=== PATIENT | male | born 1940 | race Caucasian/White ===

== ENCOUNTER 2019-01-23 09:13 | Day surgery (SDC) | payer MEDICARE ==
[~2019-01-23] VITALS: Ht 170.2 cm; Wt 75.9 kg
[~2019-01-23 09:13] MED LIST: AMLO5 PO; ATOR20 PO; ATOR80 PO; Aspir 8181 MG PO; CEPH500 PO; CLOT10 SS; GLIP10 PO; GLIP10ER; GLIP10ER PO; Glucophage1000 MG PO; INSULANPEN SC; LISI20 PO; LISI5 PO; METF500 PO; METF500C PO; METO25ER PO; METO50 PO; METO50ER PO; NITR.4SL SL; NITR.6SL PO; Nitrostat0.4 MG SL; Prinivil10 MG PO; TICA90TA; TICA90TA PO; Toprol Xl50 MG PO; Zestril40 MG PO
--- NOTE | 2019-01-23 10:49 | NUR ---
01/23/19 1042 Billie Gilliam RN NOTIFIED DR DE LA VEGA AND DR MARY OF PT'S VITAL SIGNS. PT HAS A PULSE OF 44 AND BP OF 196/81. AFTER ASSESSING THE PATIENT DR MARY AND DR LUCERO OK'D THIS PATIENT FOR HIS PROCEDURE. PT DENIES PAIN, NAUSEA, HEADACHES, AND DIZZINESS. CALL LIGHT IN REACH. WARM BLANKETS OFFERRED. DR MARY WROTE A NOTE TO THIS PT'S PCP. NOTE FAXED TO PCP KAYLEY ORTIZ TODAY AT [phone].
--- NOTE | 2019-01-23 13:13 | NUR ---
01/23/[address] DIALATED WITH DAVID 38, 42, 44, 46, 48, 50. PT TOLERATED PROCEDURE WELL.
[2019-03-19] MEDS ORDERED: ZESTRIL40 MG PO (15:05)
== END 2019-01-23 11:53 | disposition home or self-care (01) ==
LOC: ORSCSDS 09:13
PROVIDERS: Internal Medicine Gastroenterology
PROC: 0DB48ZX Excision of Esophagogastric Junction, Via Natural or Artificial Opening Endoscopic, Diagnostic (ICD-10-PCS; principal; 2019-01-23 11:00)
PROC: 0D758ZZ Dilation of Esophagus, Via Natural or Artificial Opening Endoscopic (ICD-10-PCS; principal; 2019-01-23 11:00)
PROC: 0DB68ZX Excision of Stomach, Via Natural or Artificial Opening Endoscopic, Diagnostic (ICD-10-PCS; principal; 2019-01-23 11:00)
DX: R13.14 Dysphagia, pharyngoesophageal phase (principal); R23.4 Changes in skin texture; K22.2 Esophageal obstruction; K44.9 Diaphragmatic hernia without obstruction or gangrene; E11.9 Type 2 diabetes mellitus without complications; Z87.891 Personal history of nicotine dependence; Z79.84 Long term (current) use of oral hypoglycemic drugs; Z79.899 Other long term (current) drug therapy
CPT/HCPCS: 82947; 87081; 88305; 88312; 88342; J2704; J7120

== ENCOUNTER 2019-03-27 13:06 | Day surgery (SDC) | payer MEDICARE ==
[~2019-03-27] VITALS: Ht 170.2 cm; Wt 75.5 kg
[~2019-03-27 13:06] MED LIST changes: +ZESTRIL40 MG PO
== END 2019-03-27 17:15 | disposition home or self-care (01) ==
LOC: ORSCSDS 13:06
PROVIDERS: Internal Medicine Gastroenterology
PROC: 0DBM8ZX Excision of Descending Colon, Via Natural or Artificial Opening Endoscopic, Diagnostic (ICD-10-PCS; principal; 2019-03-27 14:30)
PROC: 0DBN8ZX Excision of Sigmoid Colon, Via Natural or Artificial Opening Endoscopic, Diagnostic (ICD-10-PCS; principal; 2019-03-27 14:30)
PROC: 0DBP8ZX Excision of Rectum, Via Natural or Artificial Opening Endoscopic, Diagnostic (ICD-10-PCS; principal; 2019-03-27 14:30)
PROC: 0DBL8ZX Excision of Transverse Colon, Via Natural or Artificial Opening Endoscopic, Diagnostic (ICD-10-PCS; principal; 2019-03-27 14:30)
PROC: 0DBK8ZX Excision of Ascending Colon, Via Natural or Artificial Opening Endoscopic, Diagnostic (ICD-10-PCS; principal; 2019-03-27 14:30)
PROC: 0DJ08ZZ Inspection of Upper Intestinal Tract, Via Natural or Artificial Opening Endoscopic (ICD-10-PCS; principal; 2019-03-27 14:30)
PROC: 0D757ZZ Dilation of Esophagus, Via Natural or Artificial Opening (ICD-10-PCS; principal; 2019-03-27 14:30)
DX: Z12.11 Encounter for screening for malignant neoplasm of colon (principal); Z86.010 Personal history of colon polyps; Z80.0 Family history of malignant neoplasm of digestive organs; D12.4 Benign neoplasm of descending colon; D12.2 Benign neoplasm of ascending colon; D12.3 Benign neoplasm of transverse colon; D12.5 Benign neoplasm of sigmoid colon; D12.8 Benign neoplasm of rectum; K57.30 Diverticulosis of large intestine without perforation or abscess without bleeding; K21.9 Gastro-esophageal reflux disease without esophagitis; Q39.3 Congenital stenosis and stricture of esophagus; K44.9 Diaphragmatic hernia without obstruction or gangrene; E11.9 Type 2 diabetes mellitus without complications; I10 Essential (primary) hypertension; I25.2 Old myocardial infarction; Z86.718 Personal history of other venous thrombosis and embolism; Z79.4 Long term (current) use of insulin; Z79.899 Other long term (current) drug therapy
CPT/HCPCS: 82947; 88305; J2704; J7120

== ENCOUNTER 2020-01-08 12:40 | Inpatient (IN) | payer MEDICARE ==
[~2020-01-08] VITALS: Ht 170.2 cm; Wt 71.9 kg
[~2020-01-08 12:40] MED LIST changes: +BASAGLAR K100 UNIT/1 SC
[2020-01-08] MEDS ORDERED: AMLODIPINE BESYL5 MG PO (12:48)
[2020-01-08] MEDS ORDERED: CARVEDILOL3.125 MG PO (12:49)
[2020-01-08 13:14] LABS: BASOPHILS ABSOLUTE AUTO 0.07 K/mm3 (0.00-0.23); BASOPHILS PERCENT AUTO 1 % (0-2); EOSINOPHILS ABSOLUTE AUTO 0.07 K/mm3 (0.00-0.68); EOSINOPHILS PERCENT AUTO 1 % (0-6); Hematocrit 45.8 % (37.0-53.0); Hemoglobin 15.2 g/dL (13.5-17.5); IMMATURE GRAN ABSOLUTE AUTO 0.04 K/mm3 (0.00-0.10); IMMATURE GRAN PERCENT AUTO 0 % (0-1); LYMPHOCYTES PERCENT AUTO 17 % (21-46); MONOCYTES ABSOLUTE AUTO 0.76 K/mm3 (0.16-1.47); MONOCYTES PERCENT AUTO 7 % (4-13); Mean Corpuscular HGB Conc 33.2 g/dL (31.5-36.5); Mean Corpuscular Volume 90 fL (80-100); Mean Platelet Volume 9.2 fL (9.1-12.4); NEUTROPHILS ABSOLUTE AUTO 8.83 K/mm3 (1.96-9.15); NEUTROPHILS PERCENT AUTO 75 % (41-73); Platelet Count 355 K/mm3 (150-400); RDW Standard Deviation 39.9 fL (35.1-46.3); Red Blood Cell Count 5.07 M/mm3 (4.30-5.90); White Blood Cell Count 11.77 K/mm3 (4.00-11.30)
[2020-01-08 13:42] LABS: Alanine Aminotransfer (ALT/SGP 42 U/L (12-78); Albumin, Blood 3.7 g/dL (3.4-5.0); Albumin/Globulin Ratio 0.8 (0.8-1.8); Alk Phos 83 U/L (50-136); Anion Gap 5 mmol/L (6-16); Aspartate Aminotrans (AST/SGOT 25 U/L (12-37); Bilirubin, Total 0.8 mg/dL (0.1-1.0); Blood Urea Nitrogen 20 mg/dL (8-24); Bun/Creatinine Ratio 20.9 (12.0-20.0); CO2, Blood 28 mmol/L (21-32); Calcium, Blood 9.7 mg/dL (8.5-10.1); Chloride, Blood 103 mmol/L (98-108); Creatinine, Blood 0.96 mg/dL (0.60-1.20); Globulin, Blood 4.5 g/dL (2.2-4.0); Glomerular Filtration Rate >60 (60-); Glucose, Blood 233 mg/dL (70-99); Potassium, Blood 4.5 mmol/L (3.5-5.5); Sodium, Blood 136 mmol/L (136-145); Total Protein, Blood 8.2 g/dL (6.4-8.2)
[2020-01-08] MEDS ORDERED: CHLO25B PO (15:19)
--- NOTE | 2020-01-09 01:07 | NUR ---
Peripheral IV located in Right anticubital, inserted 6/5, unintentionally charted as left AC. Site clean, dry and intact, flushing well.
--- NOTE | 2020-01-09 04:16 | NUR ---
MOBILE HEALTH VEHICLE OPERATOR SUMMARY Slept well overnight. No complaints of pain or discomfort. Pleasant and cooperative with Q4 hour neuro checks. No deficits noted with exception of complaints of red and blue light flashes in his eyes. Also, the patient was noted to have a visual field cut at the angles of 10:00 and 2:00. Papers have been filled out for this morning's MRI. will continue monitoring
[2020-01-09 04:53] LABS: BASOPHILS ABSOLUTE AUTO 0.06 K/mm3 (0.00-0.23); BASOPHILS PERCENT AUTO 1 % (0-2); EOSINOPHILS ABSOLUTE AUTO 0.21 K/mm3 (0.00-0.68); EOSINOPHILS PERCENT AUTO 2 % (0-6); Hematocrit 43.2 % (37.0-53.0); Hemoglobin 14.2 g/dL (13.5-17.5); IMMATURE GRAN ABSOLUTE AUTO 0.03 K/mm3 (0.00-0.10); IMMATURE GRAN PERCENT AUTO 0 % (0-1); LYMPHOCYTES ABSOLUTE AUTO 2.37 K/mm3 (0.84-5.20); LYMPHOCYTES PERCENT AUTO 27 % (21-46); MONOCYTES ABSOLUTE AUTO 0.75 K/mm3 (0.16-1.47); MONOCYTES PERCENT AUTO 8 % (4-13); Mean Corpuscular HGB 29.7 pg (26.0-34.0); Mean Corpuscular HGB Conc 32.9 g/dL (31.5-36.5); Mean Corpuscular Volume 90 fL (80-100); Mean Platelet Volume 9.2 fL (9.1-12.4); NEUTROPHILS ABSOLUTE AUTO 5.51 K/mm3 (1.96-9.15); NEUTROPHILS PERCENT AUTO 62 % (41-73); Platelet Count 295 K/mm3 (150-400); RDW Coefficient Variation 12.2 % (11.7-14.2); RDW Standard Deviation 40.5 fL (35.1-46.3); Red Blood Cell Count 4.78 M/mm3 (4.30-5.90); White Blood Cell Count 8.93 K/mm3 (4.00-11.30)
[2020-01-09 05:11] LABS: Albumin, Blood 3.1 g/dL (3.4-5.0); Anion Gap 4 mmol/L (6-16); Blood Urea Nitrogen 28 mg/dL (8-24); CO2, Blood 27 mmol/L (21-32); Calcium, Blood 8.9 mg/dL (8.5-10.1); Chloride, Blood 104 mmol/L (98-108); Glomerular Filtration Rate >60 (60-); Glucose, Blood 170 mg/dL (70-99); Phosphorus, Blood 3.5 mg/dL (2.5-4.9); Potassium, Blood 3.8 mmol/L (3.5-5.5); Sodium, Blood 135 mmol/L (136-145)
--- NOTE | 2020-01-09 18:37 | NUR ---
SHIFT SUMMARY PT REPORTED COLORED FLOATERS IN FRONT OF HIS EYES WELL BEING QUITE BLURRY. STATES IT HASN'T IMPROVED THROUGH DAY. NAPPING MOST OF DAY IN ROOM WHEN TESTING AND CARE NOT BEING COMPLETED. HAND FOREIGN AGENT EQUAL AND LEG STRENGTH EQUAL BUT DOES STRUGGLE WITH VISUAL ABILITY AT THIS TIME.
[2020-01-10 05:01] LABS: Anion Gap 6 mmol/L (6-16); Blood Urea Nitrogen 30 mg/dL (8-24); Bun/Creatinine Ratio 31.2 (12.0-20.0); CO2, Blood 27 mmol/L (21-32); Calcium, Blood 8.4 mg/dL (8.5-10.1); Chloride, Blood 104 mmol/L (98-108); Creatinine, Blood 0.96 mg/dL (0.60-1.20); Glomerular Filtration Rate >60 (60-); Glucose, Blood 113 mg/dL (70-99); Potassium, Blood 3.8 mmol/L (3.5-5.5); Sodium, Blood 137 mmol/L (136-145)
--- NOTE | 2020-01-10 06:28 | NUR ---
CAD LIBRARIAN SUMMARY Patient slept most of the night. Complained of mild headache early in shift, then fell asleep shortly after HS med and assessment. No neuro changes overnight. Patient still having visual problems but otherwise, He is A&OX4, with strength equal and strong in all 4 extremities. No facial or oral asymmetry noted. Will ask oncoming RN to request APAP order incase Al has more mild discomfort today.
--- NOTE | 2020-01-10 16:33 | NUR ---
PATIENT REQUESTED THAT THIS NURSE CALL HIS FRIEND ALEXANDRA. THIS NURSE CALLED ALEXANDRA AT 1630 ON 01/10/20 TO UPDATE HER. SHE STATES THAT SHE LIVES CLOSE TO PATIENT AND THAT HER DAUGHTER LIVES ON THE SAME PROPERTY PATIENT AND THAT THEY ARE BOTH WILLING TO CHECK ON HIM, PROVIDE SOME CARE AND PROVIDE SUPPORT WHEN PATIENT IS DISCHARGED HOME. ALEXANDRA WISHES TO BE CALLED WHEN PATIENT IS DISCHARGED SO THAT SHE CAN PICK PATIENT UP TO TAKE HIM HOME. ALEXANDRA'S PHONE NUMBER IS [phone]
--- NOTE | 2020-01-10 19:34 | NUR ---
SHIFT SUMMARY PT AXO, PLEASANT AND COOPERATIVE WITH CARE. NEURO ASSESSMENT UNCHANGED THROUGHOUT THE SHIFT. SEE NOTE ABOUT PT'S FRIEND WHO CALLED TO CHECK ON PATIENT TODAY. VSS. PT DENIES PAIN, SOB AND NV. STATES HE "FEELS FINE" EXCEPT HIS VISION DEFICITS. THIS NURSE DISCUSSED THE RISKS OF DRIVING AND ADJUSTING TO LIVING WITH LIFESTYLE CHANGES THAT ACCOMPANY VISION LOSS. BED IN LOW POSITION, CALL LIGHT WITHIN REACH.
--- NOTE | 2020-01-11 05:02 | NUR ---
SUMMARY: PT A/O, CALLS APPROPRIATELY AND IS PLEASANT AND COOPERATIVE W/CARE. NEURO ASSESSMENTS ARE STABLE W/BILAT STRENGTH INTACT AND VISUAL DISTURBANCES UNCHANGED. HE NO LONGER SEE FLECKS OF COLORED LIGHT BUT ADMITS TO BLURRED VISION W/LIMITED VISUAL FIELD. HE ONLY SEES FROM NOSE UP AND 10 O'CLOCK TO 2 O'CLOCK SO ASSISTANCE IS NEEDED W/AMBULATION, EATING AND ADL'S. HE'S DENIED PAIN AND ALL OTHER COMPLAINTS OTHER THAN VISUAL DEFICITS. PT REMAINS NSR AT 70'S BPM PER TELE W/O ANY S/S CARDIAC DISTRESS. NO ACUTE CHANGES, VSS AND AFEBRILE. PT WILL LIKELY NEED HEIGHTENED ASSISTANCE UPON D/C. HE HAS A FRIEND "ALEXANDRA" WHO EXPRESSED ABILITY TO ASSIST W/CARE PRN, SEE ANIKET'S NOTE FOR DETAILS. WCTM AND REPORT TO DAY RN.
--- NOTE | 2020-01-11 17:18 | NUR ---
EVENING NOTE PT RESTING QUIETLY. VSS. TALKED WITH PT SISTER. SHE WAS UNDER THE IMPRESSION THAT PT WAS BLIND. CORRECTED THAT IMPRESSION. SISTER IS PLANNING ON TALKING WITH THE FAMILY ABOUT PT NEED FOR RELIABLE ASSISTANCE. VSS. EATING WELL. USING CALL LIGHT TO REQUEST ASSISTANCE. CONTINUE POT.
--- NOTE | 2020-01-12 07:35 | NUR ---
01/12/20 0600 PT SLEPT ON AND OFF. DENIES ANY DISCOMFORT. STILL WITH VISUAL ISSUES FROM CVA. VITALS STABLE. REFUSED LAXATIVES HE WAS HAVING SOME LOOSE STOOLS. UNEVENTFUL NIGHT.
--- NOTE | 2020-01-12 11:42 | NUR ---
INSULIN ADMINISTRATION USING INSULIN PEN, PT WAS ABLE TO SEE AND DIAL IN NEEDED LUNCH TIME DOSE OF HUMALOG. SELF ADMINISTERED WITH TEACHING PROPER USE OF PEN. WILL CONTINUE TEACHING WITH EVENING MEAL.
--- NOTE | 2020-01-12 17:10 | NUR ---
INSULIN SELF ADMINISTRATION OF INSULIN TAUGHT. PT HAD A HARD TIME DIALING IN THE CORRECT NUMBER OF UNITS THIS EVENING DUE TO DIFFICULTY SEEING THE NUMBERS, DID FINALLY ARRIVE AT THE CORRECT DOSE AND NEEDED VERIFICATION THAT HE WAS SEEING IT CORRECTLY. WAS ABLE TO SELF ADMINISTER WITH COACHING AFTER CORRECT DOSE DRAWN UP
--- NOTE | 2020-01-12 18:48 | NUR ---
NO ACUTE CHANGES NOTED THIS SHIFT, WILL CONTINUE TO MONITOR AND REPORT TO ONCOMING RN
--- NOTE | 2020-01-13 05:19 | NUR ---
01/13/20 0515 PT SLEEPING WELL THIS SHIFT. VITALS STABLE AND HAS DENIED ANY DISCOMFORT JUST THE VISION ISSUES HE HAS BEEN HAVING SINCE ADMIT. UNEVENTFUL NIGHT.
[2020-01-13] MEDS ORDERED: Aspir 8181 MG PO (14:33)
[2020-01-13] MEDS ORDERED: CLOP75 PO (14:33)
[2020-01-13] MEDS ORDERED: HUMALOG KW100 UNIT/1 (14:34)
[2020-01-13] MEDS ORDERED: Prinivil10 MG PO (14:34)
--- NOTE | 2020-01-13 16:08 | NUR ---
DISCHARGE/TRANSFER TO SNF PT IS A/O X3, PLEASANT/COOPERATIVE. DX CVA, HE STATE NO N/T EXTREMITIES. STATE L EYE VISION CONTINUES BLURRY, STATE POOR PERIPHERAL VISION. PACKAGE LIFT OPERATOR/DORSIFLEX =/STRONG. NO SPEECH DEFICITS/FACIAL DROOP. DR BOURGEOIS STATE APPROP FOR TRANSFER TO SNF/REHAB TODAY. ABSTRACT MANAGER MAKE ARRANGEMENTS FOR TRANSFER TO [facility]. PT/OT IN FOR TX PRIOR TO D/C. IV SIATE D/C INTACT. REPORT CALLED TO NR RN. PT DECLINE SHOWER PRIOR TO D/C, LIGHT SPONGE BATH ACCEPTED. ASSISTED TO DRESS/GATHER BELONGINGS. W/C ESCORT FROM HOSP PROVIDED TO NR W/C FRANCY. PT STATE SATISFACTION/APPRECIATION.
--- NOTE | 2020-01-13 16:31 | NUR ---
HANSARD REPORTERTIPPLE ENGINEER CHANGE--PT GOING TO REHAB @ [facility] NOT [facility], REPORT CALLED TO [facility].
== END 2020-01-13 16:14 | DRG 66 ==
LOC: ER 12:40 → MEDS 14:49
PROVIDERS: Emergency Medicine; ADMIT Internal Medicine Endocrinology, Diabetes & Metabolism
DX: I63.89 Other cerebral infarction (principal); H53.47 Heteronymous bilateral field defects; I10 Essential (primary) hypertension; E11.51 Type 2 diabetes mellitus with diabetic peripheral angiopathy without gangrene; I25.10 Atherosclerotic heart disease of native coronary artery without angina pectoris; I65.23 Occlusion and stenosis of bilateral carotid arteries; E78.5 Hyperlipidemia, unspecified; Z66 Do not resuscitate; R40.2411 Glasgow coma scale score 13-15, in the field [EMT or ambulance]; Z95.5 Presence of coronary angioplasty implant and graft; Z79.4 Long term (current) use of insulin; I25.2 Old myocardial infarction; Z87.891 Personal history of nicotine dependence
CPT/HCPCS: 36415; 70450; 70551; 80053; 80069; 82947; 83695; 85025; 93005; 93010; 93306; 93880; 97112; 97116; 97129; 97162; 97166; 97530; 97535; 99285-25; A9270-GY; J1650; J1815; U0002

== ENCOUNTER 2023-05-26 09:26 | Inpatient (IN) | payer MEDICARE ==
[~2023-05-26] VITALS: Ht 182.9 cm; Wt 81.5 kg
[~2023-05-26 09:26] MED LIST changes: +AMLODIPINE BESYL5 MG PO; +CARVEDILOL3.125 MG PO; +CHLO25B PO; +CLOP75 PO; +HUMALOG KW100 UNIT/1
[2023-05-26 09:49] LABS: BASOPHILS ABSOLUTE AUTO 0.03 K/mm3 (0.00-0.23); BASOPHILS PERCENT AUTO 0 % (0-2); EOSINOPHILS ABSOLUTE AUTO 0.03 K/mm3 (0.00-0.68); EOSINOPHILS PERCENT AUTO 0 % (0-6); Hematocrit 42.8 % (37.0-53.0); Hemoglobin 14.5 g/dL (13.5-17.5); IMMATURE GRAN ABSOLUTE AUTO 0.06 K/mm3 (0.00-0.10); IMMATURE GRAN PERCENT AUTO 1 % (0-1); LYMPHOCYTES ABSOLUTE AUTO 1.63 K/mm3 (0.84-5.20); LYMPHOCYTES PERCENT AUTO 14 % (21-46); MONOCYTES PERCENT AUTO 7 % (4-13); Mean Corpuscular HGB 29.7 pg (26.0-34.0); Mean Corpuscular HGB Conc 33.9 g/dL (31.5-36.5); Mean Corpuscular Volume 88 fL (80-100); Mean Platelet Volume 9.6 fL (9.1-12.4); NEUTROPHILS ABSOLUTE AUTO 9.52 K/mm3 (1.96-9.15); NEUTROPHILS PERCENT AUTO 79 % (41-73); Platelet Count 305 K/mm3 (150-400); RDW Coefficient Variation 12.8 % (11.7-14.2); RDW Standard Deviation 41.3 fL (35.1-46.3); Red Blood Cell Count 4.88 M/mm3 (4.30-5.90); White Blood Cell Count 12.07 K/mm3 (4.00-11.30)
[2023-05-26 10:10] LABS: Albumin/Globulin Ratio 0.6 (0.8-1.8); Bilirubin, Total 0.5 mg/dL (0.1-1.0); Bun/Creatinine Ratio 30.1 (12.0-20.0); Calcium, Blood 9.2 mg/dL (8.5-10.1); Creatinine, Blood 3.86 mg/dL (0.60-1.20); Globulin, Blood 5.1 g/dL (2.2-4.0); Potassium, Blood 5.1 mmol/L (3.5-5.5); Total Protein, Blood 8.1 g/dL (6.4-8.2)
[2023-05-26 10:26] LABS: Source, Urine Voided
[2023-05-26 10:31] LABS: Influenza A, PCR NEGATIVE (NEGATIVE); Influenza B, PCR NEGATIVE (NEGATIVE); Resp Syncytial Virus, PCR NEGATIVE (NEGATIVE); SARS-Cov-2 (COVID-19) PCR, MMC NEGATIVE (NEGATIVE)
[2023-05-26 10:47] LABS: Bilirubin, Urine Neg (Neg); Blood, Urine 5+ (Neg); Glucose Qualitative, Urine 4+ (Neg); Ketones, Urine Neg (Neg); Leukocyte Esterase, Urine Neg (Neg); Nitrite, Urine Neg (Neg); Protein, Urine 1+ (Neg); Urobilinogen, Urine NORM (Normal)
[2023-05-26 10:59] LABS: Appearance, Urine Hazy (Clear); Color, Urine Yellow (P-Yellow)
[2023-05-26 11:00] LABS: Bacteria Not Seen /hpf; Squamous Epithelial Cells Rare /hpf (Few); White Blood Cells, Urine Not Seen /hpf (0-5)
--- NOTE | 2023-05-26 13:24 | NUR ---
Spoke with Dr Best and discussed case. Pt and family may benefit from goals of care conversation. Pt resting on gurney upon arrival. Pt is A&OX4, appears weak, frail, disheveled, with strong odor of urine. Pt's son Perez at bedside. Offered therapeutic listening as son reports Pt lives by him self and Pt's granddaughter (Perez's daughter) comes and checks in on him. Perez reports noticing a decline in Pt's health over the last month and has become less motivated to care for him self. He reports Pt has become more reliant on using his walker as well. Pt does not care to bathe and put clean clothes on. He also reports Pt has not wanted to eat or drink over the last week. 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 Discussed the potential need to consider hospice. Brief gentle discussion on hospice philosophy. Perez does confirm Pt would want to stay at home. Perez also expresses concerns that Pt may not be taking his medications. Pt does not engage in conversation much and is requesting to use the restroom. Spoke with ED RN and relayed Pt's request. Spoke with Dr Best and relayed conversation that took place with son Perez. Spoke with ED Field Crop Farmworker Sonia and relayed family concerns regarding caregiver assistance. Palliative Care will remain available
[2023-05-26 14:10] VITALS: BP 165/90
[2023-05-26 14:50] LABS: Source, Urine Foley catheter
[2023-05-26 15:00] LABS: Appearance, Urine Clear (Clear); Bilirubin, Urine Neg (Neg); Blood, Urine 2+ (Neg); Color, Urine Yellow (P-Yellow); Glucose Qualitative, Urine 4+ (Neg); Ketones, Urine Neg (Neg); Leukocyte Esterase, Urine Neg (Neg); Nitrite, Urine Neg (Neg); Protein, Urine 1+ (Neg); Urobilinogen, Urine NORM (Normal)
[2023-05-26 15:07] LABS: Bacteria Few /hpf; Squamous Epithelial Cells Rare /hpf (Few)
--- NOTE | 2023-05-26 16:45 | NUR ---
ADMISSION NOTES: PATIENT ARRIVES TO ROOM AT AROUND 1405 FROM ED FOR DX'S OF AMS. PATIENT IS AWAKE, ALERT AND ORIENTED TO SELF AND PLACED. CONFUSED AND VERY POOR HISTORIAN NOT ABLE TO CONTRIBUTE HIS MEDICAL HX. SKIN ASSESSMENT c 2 RN VERIFIED COMPLETED. NOTED EXCORIATION TO PENIS, GROIN, COCCYX c STAGE 1 PRESSURE SORE, ABRASION TO BILAT KNEE, BRUISING SCATTERED T/O AND REDNESS TO BILAT HEELS. MIPELEX DRESSING PLACED TO BILAT HEELS FOR PROTECTION. PATIENT HAD DRIED FECES ON BOTH LEGS, FEET AND TOES. PATIENT RECEIVED BEDBATH. PATIENT WAS ANXIOUS AND REPORTS HE WANTS TO "PEE" ASSISTED USING URINAL BUT WAS NOT ABLE TO VOID. BLADDER SCAN WERE PERFOMED AND APPEARS TO HAVE 768 MLS URINE IN BLADDER. NOTIFIED DR. MEENA aldana THIS CONCERN, RECEIVED ORDER TO PLACED DAIGLE CATHETER. 16 BELARUSIAN DAIGLE PLACED AND IMMEDIATELY DRAINED 1200 MLS YELLOW URINE TO GRAVITY. ALL PATIENT MEDICAL HX WERE OBTAINED FROM SON-ED AT BEDSIDE. PER ED "PATIENT LIVES ALONE, AMBULATES USING FWW, COOKED FOOD ON HIS OWN, HAD GLF 2 DAYS AGO AT HOME AND MANAGE TO STOOD HIMSELF OFF THE FLOOR." PATIENT HAD EPISODE OF PROJECTILE VOMITING ABOUT 700 MLS DARK BROWNISH/BLACK LIQUID. ORAL CARE DONE. HYPERTENSIVE. PATIENT RECEIVED IV ABX. REPORT GIVEN TO DAPHNEY MENDIOLA. PATIENT TRANSFERRED TO [facility] AT AROUND 1642. ALL PATIENT PERSONAL BELONGINGS WERE SENT c THE PATIENT.
--- NOTE | 2023-05-26 18:37 | NUR ---
TRANSFER ROOM/SHIFT SUMMARY PT TRANSFERRED TO [facility] ON MED FLOOR TODAY AT APPROX 1642. REPORT RECEIVED FROM YULISSA CASTAÑEDA RN. PT AxOx2-3 WITH CONFUSION AND DROWSINESS. PER YULISSA, ADMISSION COMPLETE. PT CURRENTLY RESTING IN BED WITH CALL LIGHT IN REACH AND FLUIDS RUNNING. PT DENIES ANY NEEDS/PAIN AT THIS TIME. BED ALARM ON AND CAMERA MONITORING ON AT THIS TIME. PICS IN CHART OF SKIN BREAKDOWN IN GROIN/BUTTOCKS. PT NPO AT THIS TIME D/T SUSPICIOUS VOMITING AND REPORTED DYSPHAGIA UPON ADMISSION.
[2023-05-26 21:00] VITALS: BP 151/73
--- NOTE | 2023-05-27 04:35 | NUR ---
SUMMARY: PT CONT'S VERY DROWSY BUT IS WAKEFUL TO VOICE, A/OX2 AND ABLE TO SPECIFY NEEDS. ZOFRAN PROVIDED FOR TOLERABLE RELIEF OF NAUSEA W/O EMESIS AND PT REPORTED R.FLANK TENDERNESS. DISTENSION OBSERVED TO REPORTED TENDER REGION AND MD MADE AWARE W/INSTRUCTIONS RECIEVED TO MONITOR FOR CHANGES/WORSENING. DAIGLE IS PATENT AND DRAINING AND 1L FLUIDS WAS COMPLETED AND SL'D PER EMAR. HE REMAINS NPO W/ORAL SUCTIONING AND MOUTH CARE PROVIDED PRN. MOIST HACKING COUGH PERSISTS BUT IT CONT'S TO BE DIRECTOR OF COLLECTIONS. HEEL PROTECTOR DX'S REPLACED AND FOAM PROTECTORS APPLIED FOR SBD PREVENTION. MEPILEX IS C/D/I TO EXCORIATED BUTTOCKS AND POWDER APPLIED TO GROIN/TRENT AREA. TURN SCHEDULE MAINTAINED AND EXT'S ELEVATED. BED ALARM ON AND CAMERA MONITORING IN PLACE FOR POSS IMPULSIVITY BUT PT HAS BEEN PLEASANT AND COOPERATIVE T/O NOCTE. VSS/AFEBRILE, NO ACUTE CHANGES. WCTM AND REPORT TO DAY RN.
[2023-05-27 04:38] VITALS: BP 153/75
[2023-05-27 05:43] LABS: BASOPHILS ABSOLUTE AUTO 0.03 K/mm3 (0.00-0.23); BASOPHILS PERCENT AUTO 0 % (0-2); EOSINOPHILS PERCENT AUTO 0 % (0-6); Hematocrit 43.1 % (37.0-53.0); Hemoglobin 14.7 g/dL (13.5-17.5); IMMATURE GRAN ABSOLUTE AUTO 0.05 K/mm3 (0.00-0.10); IMMATURE GRAN PERCENT AUTO 0 % (0-1); LYMPHOCYTES ABSOLUTE AUTO 0.83 K/mm3 (0.84-5.20); LYMPHOCYTES PERCENT AUTO 6 % (21-46); MONOCYTES ABSOLUTE AUTO 0.63 K/mm3 (0.16-1.47); MONOCYTES PERCENT AUTO 4 % (4-13); Mean Corpuscular HGB 29.9 pg (26.0-34.0); Mean Corpuscular HGB Conc 34.1 g/dL (31.5-36.5); Mean Corpuscular Volume 88 fL (80-100); Mean Platelet Volume 9.7 fL (9.1-12.4); NEUTROPHILS ABSOLUTE AUTO 13.44 K/mm3 (1.96-9.15); NEUTROPHILS PERCENT AUTO 90 % (41-73); Platelet Count 251 K/mm3 (150-400); RDW Coefficient Variation 13.1 % (11.7-14.2); RDW Standard Deviation 41.6 fL (35.1-46.3); Red Blood Cell Count 4.91 M/mm3 (4.30-5.90); White Blood Cell Count 14.98 K/mm3 (4.00-11.30)
[2023-05-27 05:44] VITALS: BP 118/75
[2023-05-27 05:52] VITALS: BP 135/67
[2023-05-27 06:10] LABS: Magnesium, Blood 2.1 mg/dL (1.6-2.4)
[2023-05-27 06:24] LABS: Albumin, Blood 2.6 g/dL (3.4-5.0); Albumin/Globulin Ratio 0.5 (0.8-1.8); Bilirubin, Total 0.7 mg/dL (0.1-1.0); Bun/Creatinine Ratio 57.4 (12.0-20.0); Calcium, Blood 9.3 mg/dL (8.5-10.1); Creatinine, Blood 1.29 mg/dL (0.60-1.20); Globulin, Blood 4.8 g/dL (2.2-4.0); Phosphorus, Blood 3.3 mg/dL (2.5-4.9); Potassium, Blood 3.7 mmol/L (3.5-5.5); Total Protein, Blood 7.4 g/dL (6.4-8.2)
--- NOTE | 2023-05-27 07:15 | NUR ---
OBSERVATIONS AND PSYCHIATRIC TECHNICIAN: PT HAD MOIST HACKING COUGH THAT WAS PRODUCTVE FOR THE FIRST TIME THIS SHIFT. A LARGE AMT OF THICK CONTRERAS/BROWN SPUTUM WAS SUCTIONED FROM HIS MOUTH THEN ORAL CARE WAS PERFORMED. SPEECH WAS NOW DIFFICULT TO UNDERSTAND AND A LARGE AMT OF MUCOUS AND BLOOD TINGED SPUTUM WAS SEEN IN THE BACK OF HIS THROAT AND COATING HIS ORAL CAVITY. HE WAS ABLE TO COUGH TO CLEAR MOST OF IT BUT THEN HE IMMEDIATELY BEGAN VOMITING A LARGE AMT OF DARK BROWN/MAROON LIQUID EMESIS. ABDO NOTED TO BE MORE DISTENDED, FIRM AND TENDER TO TOUCH AND PT HAD NEW C/O ABDO PAIN T/O X4 QUADS. RESPS BECAME LABORED, MOIST AND TACHYPNEIC AND LS WERE COARSE W/RHONCI T/O. MD NOTIFIED W/STAT CXR AND AND ABDO XRAY OBTAINED. RT CALLED AND PT NOTED TO BARELY SUSTAIN >90% ON 10L O2, HR 120'S. PSYCHIATRIC TECHNICIAN CALLED AT 0541 FOR ACUTE RESP DISTRESS W/PROBABLE ASPIRATION AND POSSIBLE NGT PLACEMENT NEEDED. SEE PSYCHIATRIC TECHNICIAN DOCUMENTATION FOR VITAL SIGNS, DETAILS AND INTERVENTIONS. TO HAVE DISCUSS EVENT AND SITUATION W/FAMILY W/POSSIBLE COMFORT CARE STATUS CHANGE. PT HAS NGT IN PLACE W/MAROON LIQUID OUTPUT. FENTANYL RX'D PRN PER EMAR. HE'S ON 2L O2 W/SPO2 WNL AND RESPS ARE E/U. PT CURRENTLY DENIES PAIN AND DITRESS AND HE APPEARS COMFORTABLE.
[2023-05-27 07:29] VITALS: BP 127/82
--- NOTE | 2023-05-27 07:30 | NUR ---
ASSUMED CARE: PT RESTING QUIETLY, NG TUBE TO LIS DRAINING MAROON COLORED SECRETIONS. DOES NOT APPEAR TO BE IN ANY DISTRESS AT THIS TIME.
--- NOTE | 2023-05-27 08:48 | NUR ---
CALL TO PALLIATIVE CARE TO TOUCH BASE ON NEED FOR ADVANCED CARE PLANNING. NURSE STATES SHE WILL REVIEW CHART AND RELAY UPDATES TO THIS NURSE
--- NOTE | 2023-05-27 09:00 | NUR ---
SPOKE WITH DR YUN REGARDING PT'S PLAN OF CARE. CALL TO PALLIATIVE CARE TO DISCUSS ADVANCED CARE PLANNING WITH FAMILY. DR YUN STATES HE SPOKE WITH PALLIATIVE CARE AND IS PLANNING ON SPEAKING WITH FAMILY TO DETERMINE PLANS OF CARE. DR AWARE OF MAROON COLORED OUTPUT FROM NG. DR REQUESTED HEMOCCULT WHICH HAS BEEN SENT FOR GASTRIC CONTENTS. AWAITING FURTHER INSTRUCTIONS.
[2023-05-27 09:41] LABS: Albumin, Blood 2.5 g/dL (3.4-5.0); Albumin/Globulin Ratio 0.5 (0.8-1.8); Bilirubin, Total 0.8 mg/dL (0.1-1.0); Bun/Creatinine Ratio 54.9 (12.0-20.0); Calcium, Blood 9.3 mg/dL (8.5-10.1); Creatinine, Blood 1.44 mg/dL (0.60-1.20); Globulin, Blood 4.8 g/dL (2.2-4.0); Potassium, Blood 3.8 mmol/L (3.5-5.5); Total Protein, Blood 7.3 g/dL (6.4-8.2)
--- NOTE | 2023-05-27 11:32 | NUR ---
CALL TO DR YUN TO DETERMINE FAMILY PRIORITIES. INSTRUCTS TO KEEP NG TUBE IN UNTIL PT FEELS UNCOMFORTABLE WITH IT OR REQUESTS TO HAVE IT REMOVED. ALSO ASKED FOR HOSPICE REFERRAL. PALLIATIVE CARE HAS BEEN UPDATED FOR THIS WELL.
--- NOTE | 2023-05-27 18:24 | NUR ---
SHIFT SUMMARY: PT CONTINUES TO PUT OUT MAROON LIQUID INTO NG TUBE. COMFORT CARE, FAMILY AT BEDSIDE FOR PART OF SHIFT TODAY. DENIES PAIN BUT REQUESTS ICE. SPEECH REMAINS GARBLED AT THIS TIME. NO FURTHER NEEDS OR CONCERNS AT PRESENT
--- NOTE | 2023-05-28 06:52 | NUR ---
Shift Summary Pt on comfort care. He has an NG tube running at low intermittent suction draining dark/black liquid. Marcial in place draining to gravity. Pt c/o thirst, due to NPO status he was only able to tolerate one ice chip at a time. Speech is heavily mumbled and difficult to understand. Camera in place and would occasionaly direct pt to not pull on his NG tube. He remained in bed t/o the shift.
--- NOTE | 2023-05-28 17:19 | NUR ---
SHIFT SUMMARY PT NGT REMOVED THIS AM AFTER SPEAKING WITH DR. YUN ABOUT FURTHER NEED FOR IT. PT HAD IMMEDIATE RELIEF FROM REMOVAL. MEDICATED WITH MORPHINE AFTERWARDS TO HELP WITH THROAT/NOSE DISCOMFORT AFTER REMOVAL. PT OTHERWISE DENIES PAIN AND DISCOMFORT. PT ALSO DENIES DIFFICULTY BREATHING. DAIGLE IN PLACE AND DRAINING WELL. BED BATH COMPLETED WITH CATH CARE THIS AM. PT REQUESTING COLA. SMALL SIPS GIVEN FOR COMFORT ALONG WITH ICE CHIPS. PT COUGHS OCCATIONALLY, BUT DENIES DIFFICULTY BREATHING. FAMILY IN ROOM OCCASSIONALLY TO VISIT. PLAN TO DC HOSPICE LATER THIS WEEK. NO OTHER ACUTE CHANGES IN ASSESSMENT AT THIS TIME. CALL LIGHT IN REACH.
--- NOTE | 2023-05-29 06:41 | NUR ---
SHIFT SUMMARY PT IS ALERT TO SELF. PT SLEPT T/O MOST OF SHIFT. PT DENIES PAIN AND DISCOMFORT. PT ASKED FOR WATER SEVERAL TIMES-MOUTH MOISTURE GIVEN AND SWABS USED. DAIGLE CATHETER IS PATENT AND DRAINING TO GRAVITY. PERICARE PROVIDED. REPOSITIONED. NO ACUTE CHANGES NOTED.
--- NOTE | 2023-05-29 16:57 | NUR ---
SHIFT SUMMARY: ON COMFORT CARE. ORIENTED TO SELF AND FAMILY. NPO, BUT IS GETTING ICE CHIPS AND A LITTLE PEPSI PER HIS REQUEST. DAIGLE DRAINING ADEQUATELY, URINE SLIGHTLY CONCENTRATED. ON O2 @ 2 L/MIN NC. DENIED PAIN. CACHECTIC, TURNING Q 2HOURS. HAD VISIT FROM FAMILY THIS AFTERNOON.
--- NOTE | 2023-05-30 04:06 | NUR ---
SHIFT SUMMARY NOC PT ON COMFORT CARE. A/O TO SELF. PLEASANT AND COOPERATIVE WITH CARE. ON O2 3L/NC. DAIGLE IN PLACE WITH MODERATE CONCENTRATED URINE OUTPUT. MEPILEX ON BILATERAL HEELS IN PLACE C/D/I. PT BREATHING IS SHALLOW. PT DISCHARGE IS PENDING HOME HOSPICE CARE BEING SET UP WITH SON. PT IS CURRENTLY RESTING WITH BED IN LOWEST POSITION, AND CALL LIGHT WITHIN REACH.
[2023-05-30] MEDS ORDERED: Ativan1 MG PO (10:45)
[2023-05-30] MEDS ORDERED: MORP20L SL (10:46)
[2023-05-30] MEDS ORDERED: 1/2 NS 250ml250 ML (10:47)
[2023-05-30] MEDS ORDERED: TRANSDERM-SCOP1 EA10 TOP (10:47)
--- NOTE | 2023-05-30 11:13 | NUR ---
Spoke with RN Jig Mill Operator Lilian and discussed case. Pt to D/C today with hospice services. Pt will need POLST completed before transport arrives. Pt resting in bed and appears weak and frail. Pt struggles with communication and voice is soft and raspy. Pt denies pain at this time. Pt appears to be in agreement with D/C plan. Pt reports no concerns at this time. Called and spoke with Pt's son Perez. Reviewed plan for D/C with hospice services today. Perez agreeable to complete POLST over the phone. Discussed options to choose from and meaning of each option. Perez reports Pt's wishes are DNR and Comfort Measures Only. Completed POLST over the phone and witnessed by DAPHNEY Farrell. POLST signed by Dr Wilson. Copy of POLST sent to medical records via hospital tube system. Copies of POLST along with original POLST given to RN Jig Mill Operator Lilian. Copy for hospice, copy for transport. Spoke with Primary RN Ysabel and discussed case. Ysabel will call [facility] when Pt is D/C. Palliative Care will remain available
--- NOTE | 2023-05-30 15:08 | NUR ---
PATIENT PICKED UP BY [facility] FOR TRANSFER TO HOME HOSPICE. IV SALINE LOCK REMOVED WITHOUT INCIDENT. NO BELONGINGS LEFT BEHIND IN ROOM. [facility]ONE OF [facility]'S DE[facility].
== END 2023-05-30 15:15 | disposition hospice, home (50) | DRG 64 ==
LOC: ER 09:26 → MEDS 12:39 → ENPENDDIS 05-30 10:49 → MEDS 05-30 15:15
PROVIDERS: Emergency Medicine; Internal Medicine; ADMIT Family Medicine
PROC: 0DH67UZ Insertion of Feeding Device into Stomach, Via Natural or Artificial Opening (ICD-10-PCS; principal; 2023-05-27)
DX: I63.9 Cerebral infarction, unspecified (principal); E43 Unspecified severe protein-calorie malnutrition; G93.41 Metabolic encephalopathy; N17.9 Acute kidney failure, unspecified; R64 Cachexia; Z51.5 Encounter for palliative care; Z66 Do not resuscitate; I25.10 Atherosclerotic heart disease of native coronary artery without angina pectoris; E11.51 Type 2 diabetes mellitus with diabetic peripheral angiopathy without gangrene; E78.5 Hyperlipidemia, unspecified; I10 Essential (primary) hypertension; R62.7 Adult failure to thrive; F01.50 Vascular dementia, unspecified severity, without behavioral disturbance, psychotic disturbance, mood disturbance, and anxiety; E86.0 Dehydration; Z79.84 Long term (current) use of oral hypoglycemic drugs; Z79.82 Long term (current) use of aspirin; I25.2 Old myocardial infarction; Z79.4 Long term (current) use of insulin; Z79.899 Other long term (current) drug therapy; Z98.52 Vasectomy status; Z86.73 Personal history of transient ischemic attack (TIA), and cerebral infarction without residual deficits; Z95.5 Presence of coronary angioplasty implant and graft; Z98.890 Other specified postprocedural states; Z87.891 Personal history of nicotine dependence; Z68.23 Body mass index [BMI] 23.0-23.9, adult; Z11.52 Encounter for screening for COVID-19
CPT/HCPCS: 0241U; 31720; 36415; 51701; 70450; 71045; 74018; 80053; 81001; 82271; 82550; 83605; 83735; 84100; 84145; 84484; 85025; 93005; 93010; 96361-59; 96374-59; 99285-25; A9270; C9113; J0456; J0696; J2270; J2405; J7030; J7050